=== PATIENT | male | born 1965 | race Caucasian/White ===

== ENCOUNTER 2018-09-21 20:25 | Emergency (ER) | payer MEDICAID, SELFPAY ==
[~2018-09-21] VITALS: Ht 175.3 cm; Wt 92.0 kg
[2018-09-21] MEDS ORDERED: ACETAMINOPHEN 500 MG TABLET ONE (20:33)
--- NOTE | 2018-09-21 20:48 | NUR ---
PT AWARE UA IS NEEDED. PT STATES UNABLE TO PROVIDE SAMPLE AT THIS TIME. PT GIVEN URINAL. PT AWARE TO GIVE SAMPLE WHEN ABLE.
[2018-09-21] MEDS ORDERED: MORPHINE SULFATE 4 MG/ML, 1ML IVPush PRN (21:00)
[2018-09-21] MEDS ORDERED: ACETAMINOPHEN 500 MG TABLET PO ONE (21:00)
[2018-09-21] MEDS ORDERED: ONDANSETRON 2MG/ML, 2ML IVPush ONE (21:00)
[2018-09-21] MEDS ORDERED: SODIUM CHLORIDE FLUSH 10ML SYR IVF ONE (21:00)
[2018-09-21 21:09] LABS: BASOPHILS # (AUTO) 0.01 x10^3/uL (0-0.1); BASOPHILS % (AUTO) 0 % (0-1); EOSINOPHILS % (AUTO) 1 % (1-7); LYMPHOCYTES # (AUTO) 0.96 x10^3/uL (1-3.4); LYMPHOCYTES % (AUTO) 7 % (22-44); MD NO; MEAN CORPUSCULAR HEMOGLOBIN 31.6 pg (27.5-34.5); MEAN CORPUSCULAR HGB CONC 34.5 g/dL (33.2-36.2); MEAN CORPUSCULAR VOLUME 91.5 fL (81-97); MEAN PLATELET VOLUME 7.4 fL (7.4-10.4); MONOCYTES # (AUTO) 1.13 x10^3/uL (0.2-0.8); MONOCYTES % (AUTO) 9 % (2-9); NEUTROPHILS # (AUTO) 10.95 x10^3/uL (1.8-6.8); NEUTROPHILS % (AUTO) 83 % (42-75); PLATELET COUNT 305 x10^3/uL (130-400); RED BLOOD COUNT 4.51 x10^6/uL (4.38-5.82); RED CELL DISTRIBUTION WIDTH 12.3 % (9.4-14.8)
--- NOTE | 2018-09-21 21:15 | NUR ---
SBAR REPORT RECEIVED FROM WHIT RNLASHONDA. PT RESTING ON RADHA, ON MONITORS.
[2018-09-21 21:21] LABS: ALANINE AMINOTRANSFERASE 15 U/L (12-78); ALBUMIN 3.1 g/dL (3.4-5.0); ANION GAP 6 mmol/L (5-15); CALCIUM 8.4 mg/dL (8.5-10.1); CHLORIDE 102 mmol/L (98-107)
[2018-09-21] MEDS ORDERED: ONDANSETRON 2MG/ML, 2ML ONE (21:22)
[2018-09-21] MEDS ORDERED: MORPHINE SULFATE 4 MG/ML, 1ML ONE (21:23)
[2018-09-21 21:33] LABS: ALKALINE PHOSPHATASE 78 U/L (45-117); BILIRUBIN,TOTAL 0.5 mg/dL (0.2-1.0); CREATININE 0.73 mg/dL (0.7-1.3); TOTAL PROTEIN 6.6 g/dL (6.4-8.2)
[2018-09-21 21:36] LABS: RAPID INFLUENZA A Negative (Negative); RAPID INFLUENZA B Negative (Negative)
--- NOTE | 2018-09-21 21:37 | NUR ---
PT MEDICATED, PER MAR. PT AWARE OF NEED FOR URINE SAMPLE.
--- NOTE | 2018-09-21 22:26 | NUR ---
Pt asleep on gurney, woken up and urine sample requested. Pt now attempting to provide urine sample.
--- NOTE | 2018-09-21 22:56 | NUR ---
Urine sample collected and sent to lab.
[2018-09-21 23:06] LABS: MICROSCOPIC NOT IND
[2018-09-21 23:08] LABS: CULTURE INDICATED? NO
--- NOTE | 2018-09-21 23:37 | NUR ---
Clarice JOHNSON, at bedside to discuss ED findings and d/c information.
[2018-09-21 23:53] VITALS: BP 101/63
--- NOTE | 2018-09-21 23:53 | NUR ---
Patient/Caregiver given discharge instructions and they have confirmed that they understand the instructions. Patient ambulatory with steady gait.
== END 2018-09-21 23:54 | disposition home or self-care (01) ==
LOC: ED 23:48
DX: R10.84 Generalized abdominal pain (principal); R11.2 Nausea with vomiting, unspecified; R19.7 Diarrhea, unspecified; B34.9 Viral infection, unspecified
CPT/HCPCS: 36415; 80053; 81003; 83690; 85025; 87400; 99283; J2405

== ENCOUNTER 2018-10-10 18:07 | Emergency (ER) | payer MEDICAID ==
[~2018-10-10] VITALS: Ht 175.3 cm; Wt 81.0 kg
[~2018-10-10 18:07] MED LIST: AMOX1TAB64 PO; IBUP-1484 PO; OXYC5TAB3 PO
--- NOTE | 2018-10-10 18:56 | NUR ---
NIL WHEN CALLED FOR TRIAGE
--- NOTE | 2018-10-10 19:37 | NUR ---
NIL X 2 WHEN CALLED FOR TRIAGE.
[2018-10-10 19:46] VITALS: BP 117/84
--- NOTE | 2018-10-10 20:06 | NUR ---
PT TO ROOM FROM LOBBY
--- NOTE | 2018-10-10 20:26 | NUR ---
PT SLEEPING ON HAYDE GARCIA. WAITING FOR MD BENDER.
--- NOTE | 2018-10-10 21:33 | NUR ---
D/C INSTRUCTIONS GIVEN TO PT. PT SAYS HE HAS A F/U WITH [facility] ON 11/01, INSTRUCTED TO PT TO CALL AND UPDATE THEM ON SITUATION AND GO TO APPT SCHEDULED. ADDRESSED ALL QUESTIONS/CONCERNS, VERBALIZED UNDERSTANDING. PT AMBULATED OUT OF ED IN STABLE CONDITION WITH ALL BELONGINGS.
== END 2018-10-10 21:37 | disposition home or self-care (01) ==
LOC: ED 21:31
DX: J95.830 Postprocedural hemorrhage of a respiratory system organ or structure following a respiratory system procedure (principal); F17.200 Nicotine dependence, unspecified, uncomplicated
CPT/HCPCS: 99283